=== PATIENT | male | born 1990 | race African-American/Black ===

== ENCOUNTER 2017-07-09 01:30 | Emergency (ER) | payer SELFPAY ==
[~2017-07-09] VITALS: Ht 185.4 cm; Wt 81.6 kg
[2017-07-09] MEDS ORDERED: LIDOCAINE 1%-EPI 1:100,000 20 ML VIAL ONE (01:47)
--- NOTE | 2017-07-09 01:47 | NUR ---
MD DECKER AT BEDSIDE PERFORMING LACERATION REPAIR.
--- NOTE | 2017-07-09 01:50 | NUR ---
Pedal pulse and sensation present in right foot, distal to laceration.
--- NOTE | 2017-07-09 02:10 | NUR ---
PT RECEIVES VISIT FROM FRIEND. PT IN BED. LAC REPAIR STILL BEING CONDUCTED.
[2017-07-09] MEDS ORDERED: HYDROCODONE/APAP 5-325MG TABLET PO ONE (02:30)
[2017-07-09] MEDS ORDERED: TDAP DIPH,PERTUSS,TET VAC/PF 0.5 ML DISP.SYRIN IM ONE ×2 (02:30→02:40)
[2017-07-09] MEDS ORDERED: CEFAZOLIN 1 G VIAL IM ONE (02:30)
[2017-07-09] MEDS ORDERED: CEFAZOLIN 1 G VIAL ONE (02:40)
[2017-07-09 02:57] LABS: BASOPHILS # (AUTO) 0.1 K/uL (0.0-8.0); BASOPHILS % (AUTO) 0.9 % (0.0-2.0); EOSINOPHILS # (AUTO) 0.1 K/uL (0.0-0.7); EOSINOPHILS % (AUTO) 0.9 % (0.0-7.0); HEMATOCRIT 44.3 % (36.7-47.1); HEMOGLOBIN 14.5 g/dL (12.5-16.3); LYMPHOCYTES # (AUTO) 1.8 K/uL (20.0-40.0); MEAN CORPUSCULAR HEMOGLOBIN 26.1 uug (23.8-33.4); MEAN CORPUSCULAR HGB CONC 33 g/dL (32.5-36.3); MEAN CORPUSCULAR VOLUME 79.4 fL (73.0-96.2); MONOCYTES # (AUTO) 0.3 K/uL (2.0-10.0); NEUTROPHILS # (AUTO) 4.1 K/uL (1.8-8.9); NEUTROPHILS % (AUTO) 65.2 % (38.5-71.5); PLATELET COUNT (AUTO) 234 K/uL (152-348); RED BLOOD CELL COUNT(AUTO) 5.58 MIL/uL (4.06-5.63); WHITE BLOOD COUNT (AUTO) 6.3 K/uL (3.6-10.2)
[2017-07-09 03:05] LABS: BILIRUBIN,TOTAL 0.3 mg/dL (0.2-1.0); POTASSIUM 3.8 mmol/L (3.5-5.1); TOTAL PROTEIN, SERUM 7.7 g/dL (6.4-8.2)
[2017-07-09] MEDS ORDERED: HYDROCODONE/APAP 5-325MG TABLET ONE (03:11)
[2017-07-09] MEDS ORDERED: NORMAL SALINE FLUSH 10 ML DISP.SYRIN ONE (03:19)
[2017-07-09] MEDS ORDERED: IOHEXOL 350 100 ML INFUS..BTL ONE ×2 (03:20→04:05)
[2017-07-09] MEDS ORDERED: IV NORMAL SALINE 100 ML ONE (03:20)
--- NOTE | 2017-07-09 03:38 | NUR ---
LACERATION REPAIR AND ANTIBIOTIC WELL TOLERATED. PT NOW IN ROUTE TO CT.
--- NOTE | 2017-07-09 04:23 | NUR ---
PT BACK FROM CT
--- NOTE | 2017-07-09 05:00 | NUR ---
Patient discharged to home in stable conditon. Written and verbal after care instructions given. Patient verbalizes understanding of instructions. Patient reported reduced pain upon discharge. Patient able to ambulate unassisted with a steady gait. Patient had peripheral IV removed from right AC. Patient left with all personal belongings.
[2017-07-09 05:08] VITALS: BP 124/74
== END 2017-07-09 05:00 | disposition home or self-care (01) ==
LOC: ER 01:36
DX: S71.111A Laceration without foreign body, right thigh, initial encounter (principal); F12.90 Cannabis use, unspecified, uncomplicated; W26.9XXA Contact with unspecified sharp object(s), initial encounter; Y93.89 Activity, other specified; Y92.89 Other specified places as the place of occurrence of the external cause; Y99.8 Other external cause status
CPT/HCPCS: 36415; 73706; 85025; 85610; 90715; A4217; A4663; G0480; J0690; J3490; Q9967